=== PATIENT | female | born 1950 | race Caucasian/White ===

== ENCOUNTER 2020-04-03 10:55 | Inpatient (IN) | payer OTHER, BC ==
[2020-04-03] MEDS ORDERED: SODIUM CHLORIDE 2,068 ML IV ONE (11:12)
--- NOTE | 2020-04-03 11:27 | PDOC ---
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 Patient received flu vaccination [address] Craig's office and 2 hours after she started feeling fever and slurred speech. She presented to the ED yesterday with the complaints but was sent home with reassurance as likely vaccination. She has been taking around the clock tylenol. Today she didnt take tylenol and was febrile. After getting up to use the bathroom, she reported BL LE weakness and slumped to the ground without BHT or LOC. At that time she reported word finding difficulty and required assist getting off the ground. She reports her chronic left frontal headache which is unchanged from baseline. She denies neck pain, confusion, meningisumus, chest pain, SOB, abd pain, n/v. PMHx: as noted above ROS: as noted SHx: Denies tobacco use; no alcohol use; no rec drugs Allergies: NKDA ROS: GENERAL/CONSTITUTIONAL: +fever; no chills. + weakness. HEAD, EYES, EARS, NOSE AND THROAT: No change in vision. No ear pain or discharge. No sore throat. CARDIOVASCULAR: No chest pain or shortness of breath RESPIRATORY: No cough, wheezing, or hemoptysis. GASTROINTESTINAL: No nausea, vomiting, diarrhea or constipation. GENITOURINARY: No dysuria, frequency, or change in urination. MUSCULOSKELETAL: No joint or muscle swelling or pain. No neck or back pain. SKIN: No rash NEUROLOGIC: No headache, vertigo, loss of consciousness, or change in stren gth/sensation. ENDOCRINE: No increased thirst. No abnormal weight change HEMATOLOGIC/LYMPHATIC: No anemia, easy bleeding, or history of blood clots. ALLERGIC/IMMUNOLOGIC: No hives or skin allergy. PE: GENERAL: Awake, alert, and fully oriented, no acute distress HEAD: No signs of trauma, normocephalic, atraumatic EYES: EOMI, sclera anicteric, conjunctiva clear ENT: Auricles normal inspection, hearing grossly normal, nares patent, oropharynx clear without exudates. Moist mucosa NECK: Normal ROM, no lymphadenopathy LUNGS: No increased work of breathing, symmetrical chest rise, right basilar rales HEART: Regular rate, regular rhythm, normal S1 and S2, no murmur, peripheral pulses 2+ and equal bilaterally. ABDOMEN: Soft, nondistended, nontender. No guarding, no rebound. No masses. No CVAT MUSCULOSKELETAL: FROM NEUROLOGICAL: Cranial nerves II through XII grossly intact. Normal speech, stable gait, no focal sensorimotor deficits SKIN: Warm, Dry, normal turgor, no rashes or lesions noted Past History - Medical History Allergies/Adverse Reactions: Allergies Allergy/AdvReac Type Severity Reaction Status Date / Time adalimumab [From Humira] Allergy Severe Swelling Verified 04/03/20 10:56 of lips, gums and tongue codeine [Codeine] Allergy Severe SOB Verified 04/03/20 10:56 sulfamethizole Allergy Severe generalized Verified 04/03/20 10:56 rash methotrexate AdvReac Severe Oral Ulcers Verified 04/03/20 10:56 eeg yolk Allergy Severe Lip Uncoded 04/03/20 10:56 swelling Home Medications: Ambulatory Orders Aspirin [Aspirin Ec] 325 mg PO DAILY 08/23/12 Folic Acid 1 mg PO DAILY tablet 08/23/12 Hydroxychloroquine Sulfate [Plaquenil] 200 mg PO BID tablet 08/23/12 Dorzolamide HCl/Timolol Maleat [Cosopt Eye Drops] 1 drop OP EACH EYE 06/29/15 COPD: No HTN: Yes Hypercholesterolemia: Yes Other medical history: LUPUS, RA - Immunization History Immunization Up to Date: Yes - Psycho-Social/Smoking History Smoking History: Never smoked Have you smoked in the past 12 months: No - Substance Abuse Hx (Audit-C & DAST Scrn) How often the patient has a drink containing alcohol: Never Score: In Men: 4 or > Positive; In Women: 3 or > Positive: 0 Screen Result (Pos requires Nsg. Audit-10AR): Negative In the last yr the pt used illegal drug/Rx for NonMed reason: No Score: Yes response is considered Positive: 0 Screen Result (Positive result requires Nsg. 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 T 101.5 HR 90s-100s. Pe with right basilar rales. PE includes CVA, sepsis, vaccine reaction, GBS. Without evidence of meningeal signs, meningitis less likely. -sepsis order set, ivf, tylenol, CTH 04/03/20 18:50 CTH negative consult to Dr Grimaldo detonator maker for Dr Aparicio; recommending MRI brain, esr, crp, lyme, covid, ths will admit for fever in immunocompromised patient admitted under Dr Mark Discharge - Discharge Information Problems reviewed: Yes Clinical Impression/Diagnosis: Fever, Pneumonia, Weakness Condition: Stable - Follow up/Referral - Patient Discharge Instructions - Post Discharge Activity
[2020-04-03 11:55] LABS: BASO % 0.6 % (0-2.0); EOS % 0.1 % (0-4.5); HEMATOCRIT 36.6 % (32.4-45.2); LYMPH % 5.3 % (8-40); MCH 32.3 pg (25.7-33.7); MCHC 32.8 g/dl (32.0-36.0); MEAN CELL VOLUME 98.5 fl (80-96); MEAN PLT VOLUME 8.3 fl (7.5-11.1); PLATELET COUNT 149 K/MM3 (134-434); RBC 3.71 M/mm3 (3.60-5.2); RDW 15.6 % (11.6-15.6); WHITE BLOOD COUNT 9.1 K/mm3 (4.0-10.0)
[2020-04-03 12:01] LABS: INR 1.09 (0.83-1.09); PROTHROMBIN TIME (PATIENT) 12.9 SEC (9.7-13.0)
[2020-04-03 12:04] LABS: ACTIVATED PTT 31.6 SECONDS (25.2-36.5)
[2020-04-03 12:23] LABS: ALBUMIN 3.2 g/dl (3.4-5.0); ALK PHOS 113 U/L (45-117); ANION GAP 6 MMOL/L (8-16); BILIRUBIN,TOTAL 0.4 mg/dL (0.2-1); BLOOD UREA NITROGEN 19.3 mg/dL (7-18); CALCIUM 8.6 mg/dL (8.5-10.1); CHLORIDE 106 mmol/L (98-107); CO2 29 mmol/L (21-32); GLUCOSE,RANDOM 100 mg/dL (74-106); SGOT/AST 55 U/L (15-37); SGPT/ALT 45 U/L (13-61); SODIUM 141 mmol/L (136-145); TOT PROT 6.2 g/dl (6.4-8.2)
[2020-04-03] MEDS ORDERED: ACETAMINOPHEN 500 MG TABLET (FP) PO ONE (12:47)
[2020-04-03] MEDS ORDERED: VANCOMYCIN 1 GM PREMIX - 1 GM/200 ML BAG IVPB ONE (13:12)
[2020-04-03] MEDS ORDERED: PIPERACILLIN/TAZOB 4.5 GM 4.5 GM in DEXTROSE 5%-WATER 100 ML IVPB ONE (13:12)
[2020-04-03] MEDS ORDERED: ACETAMINOPHEN 1000 MG/100 ML VIAL (NON FORMULARY) IVPB ONE (13:25)
[2020-04-03] MEDS ORDERED: ACETAMINOPHEN INJECTION 100 ML IVPB ONE (13:26)
[2020-04-03] MEDS ORDERED: PIPERACILLIN/TAZOB 4.5 GM 4.5 GM/100 ML BAG IVPB ONE (13:51)
--- NOTE | 2020-04-03 14:04 | PDOC ---
Documentation entered by Heather Everett SCRIBE, acting as scribe for Lm Norman MD. Lm Norman MD: This documentation has been prepared by the Karlos tsang Xhesika, SCRIBE, under my direction and personally reviewed by me in its entirety. I confirm that the documentation accurately reflects all work, treatment, procedures, and medical decision making performed by me. Attending Attestation - Resident Resident Name: Jorge Lr - ED Attending Attestation I have performed the following: I have examined & evaluated the patient, The case was reviewed & discussed with the resident, I agree w/resident's findings & plan, Exceptions are as noted - HPI HPI: 04/03/20 12:00 The patient is a 70y/o F with a pmh of lupus, rheumatoid arthritis, hypothyroidism, and scleroderma presents to the ED BIBA with fat igue/weakness/fever. Patient states that she had a flu shot 2 days ago, that evening she felt chills, generally weak and there was an episode of dysarthria, they called EMS the patient was evaluated in the ER and then discharged. She was fine yesterday and then this morning when the patient woke up she was found laying in the bathroom on the bathtub by her and wasnt able to stand up - there was also some brief word finding difficulty. pt does endorse mild L frontal headache, which is chronic for her and typical and unchanged of her headaches. denie sany vision changes, n/v, neck pain, current focal weakness, back pain, cough, sob, diarrhea, dysuria. - Physicial Exam PE: 04/03/20 13:47 GENERAL: The patient is awake, alert, and fully oriented, Nontoxic - in no acute distress. HEAD: Normocephalic, atraumatic. EYES: extraocular movements intact, sclera anicteric, conjunctiva clear. ENT: Normal voice, Moist mucous membranes. NECK: Normal range of motion, supple, Kernig's, negative Brudzinski's LUNGS: Breath sounds equal, clear to auscultation bilaterally. No wheezes, no rhonchi, no rales. HEART: Regular rate and rhythm, normal S1 and S2 without murmur, rub or gallop. ABDOMEN: Soft, nontender, No guarding, no rebound. No CVA tenderness EXTREMITIES: Normal range of motion, no edema. NEUROLOGICAL: No facial assymetry, Normal speech, moving all 4 extremities spontaneously symmetrically, and intact in upper and lower extremities PSYCH: Normal mood, normal affect. SKIN: Hot to touch, Dry, normal turgor, - Medical Decision Making 04/03/20 14:02 no clinical signs of meningitis - ?gbs with temporal relation to flu vaccine? no abnormalneuro findings currently blood work reviewed, no signs of leukocytosis/leukopenia, though neutraphils elevated to [address] head w/o acute findings cxr noted for possible RLL pna - will give abx will dw neurology will continue to monitor Heart Score/ECG Review - ECG Impressions Comment:: 04/03/20 15:12 Twelve-lead EKG was performed and reviewed by me. There is normal sinus rhythm with a normal rate. Rate of 85 The axis is normal. The intervals are normal. There is normal R wave progression There are no ST or T wave abnormalities. Impression: Normal twelve-lead EKG Discharge - Discharge Information Problems reviewed: Yes Clinical Impression/Diagnosis: Weakness Fever Qualifiers: Fever type: due to other condition Qualified Code(s): R50.81 - Fever presenting with conditions classified elsewhere Pneumonia Qualifiers: Pneumonia type: due to unspecified organism Laterality: unspecified laterality Lung location: unspecified part of lung Qualified Code(s): J18.9 - Pneumonia, unspecified organism Condition: Stable Disposition: HOME - Follow up/Referral - Patient Discharge Instructions - Post Discharge Activity
[2020-04-03 14:06] LABS: EPI CELLS 8 /uL (0-25.1); HYALINE CASTS 3 /uL (0-3.1); URINE APPEARANCE CLEAR; URINE BACTERIA 2 /uL (0-1359); URINE BILIRUBIN NEGATIVE (NEGATIVE); URINE COLOR DK YELLOW; URINE GLUCOSE (UA) NEGATIVE (NEGATIVE); URINE KETONE 1+ (NEGATIVE); URINE LEUK ESTERASE NEGATIVE (NEGATIVE); URINE NITRITE NEGATIVE (NEGATIVE); URINE PROTEIN 1+ (NEGATIVE); URINE RBC 20 /uL (0-23.9); URINE WBC 7 /uL (0-25.8)
[2020-04-03] MEDS ORDERED: VANCOMYCIN 1 GRAM (PRE-DOCKED) 1,000 MG/250 ML BAG IVPB ONE (14:34)
[2020-04-03] MEDS ORDERED: GABAPENTIN 300 MG CAPSULE PO ONE (16:09)
[2020-04-03] MEDS ORDERED: ASPIRIN 81 MG CHEWABLE TABLETS PO ONE (16:09)
[2020-04-03] MEDS ORDERED: LEVOTHYROXINE NA 88 MCG TABLET (FP) PO ONE (16:16)
[2020-04-03] MEDS ORDERED: ASPIRIN 81 MG CHEWABLE TABLETS ONE (17:17)
[2020-04-03 18:39] LABS: ERYTHROCYTE SEDIMENTATION RATE 34 mm/hr (0-30)
--- NOTE | 2020-04-03 19:04 | HP ---
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 Patient received flu vaccination [address] Craig's office and 2 hours after she started feeling fever and slurred speech, her husbands noticed that her speech and thoughts are non coherent during these episodes, pt reported that episodes lasted few minutes after which she returned back to normal completely. no dyspnea, no chest pain, no palpitations, no new medications, no sick contacts. ER course was notable for: (1) fever 101 (2) CT/MRI brain remote microvascular changes (3) Recent Travel: no PAST MEDICAL HISTORY: see HPI PAST SURGICAL HISTORY: toneslectomy, thoracotomy for TB cavatation of rt middle lobe, Rt Knee arthroscopy, hysterectomy+ BSO Social History: retired ER nurse Smoking:no Alcohol:no Drugs: no Allergies adalimumab [From Humira] Allergy (Severe, Verified 04/03/20 10:56) Swelling of lips, gums and tongue codeine [Codeine] Allergy (Severe, Verified 04/03/20 10:56) SOB sulfamethizole Allergy (Severe, Verified 04/03/20 10:56) generalized rash methotrexate Adverse Reaction (Severe, Verified 04/03/20 10:56) Oral Ulcers eeg yolk Allergy (Severe, Uncoded 04/03/20 10:56) Lip swelling HOME MEDICATIONS: Home Medications Medication Instructions Recorded Aspirin [Aspirin Ec] 325 mg PO DAILY 08/23/12 Folic Acid 1 mg PO DAILY tablet 08/23/12 Hydroxychloroquine Sulfate 200 mg PO BID tablet 08/23/12 [Plaquenil] Dorzolamide HCl/Timolol Maleat 1 drop OP EACH EYE 06/29/15 [Cosopt Eye Drops] REVIEW OF SYSTEMS CONSTITUTIONAL: Absent: fever, chills, diaphoresis, generalized weakness, malaise, loss of appetite, weight change HEENT: Absent: rhinorrhea, nasal congestion, throat pain, throat swelling, difficulty swallowing, mouth swelling, ear pain, eye pain, visual changes CARDIOVASCULAR: Absent: chest pain, syncope, palpitations, irregular heart rate, lightheadedness, peripheral edema RESPIRATORY: Absent: cough, shortness of breath, dyspnea with exertion, orthopnea, wheezing, stridor, hemoptysis GASTROINTESTINAL: Absent: abdominal pain, abdominal distension, nausea, vomiting, diarrhea, constipation, melena, hematochezia GENITOURINARY: Absent: dysuria, frequency, urgency, hesitancy, hematuria, flank pain, genital pain MUSCULOSKELETAL: Absent: myalgia, arthralgia, joint swelling, back pain, neck pain SKIN: Absent: rash, itching, pallor HEMATOLOGIC/IMMUNOLOGIC: Absent: easy bleeding, easy bruising, lymphadenopathy, frequent infections ENDOCRINE: Absent: unexplained weight gain, unexplained weight loss, heat intolerance, cold intolerance NEUROLOGIC: see HPI PSYCHIATRIC: Absent: anxiety, depression, suicidal or homicidal ideation, hallucinations. PHYSICAL EXAMINATION Vital Signs - 24 hr 04/03/20 04/03/20 04/03/20 10:56 11:05 14:05 Temperature 101.5 F H 99.3 F Pulse Rate 93 H Pulse Rate [ 76 Left Radial] Respiratory 20 16 Rate Blood Pressure 92/61 Blood Pressure 94/55 L [Left Arm] O2 Sat by Pulse 100 95 96 Oximetry (%) 04/03/20 14:08 Temperature Pulse Rate Pulse Rate [ Left Radial] Respiratory Rate Blood Pressure Blood Pressure [Left Arm] O2 Sat by Pulse 95 Oximetry (%) GENERAL: Awake, alert, and fully oriented, in no acute distress. HEAD: Normal with no signs of trauma. EYES: Pupils equal, round and reactive to light, extraocular movements intact, sclera anicteric, conjunctiva clear. No lid lag. EARS, NOSE, THROAT: Ears normal, nares patent, oropharynx clear without exudates. Moist mucous membranes. NECK: Normal range of motion, supple without lymphadenopathy, JVD, or masses. LUNGS: Breath sounds equal, clear to auscultation bilaterally. No wheezes, and no crackles. No accessory muscle use. HEART: Regular rate and rhythm, normal S1 and S2 without murmur, rub or gallop. ABDOMEN: Soft, nontender, not distended, normoactive bowel sounds, no guarding, no rebound, no masses. No hepatomegaly or splenomegaly. MUSCULOSKELETAL: Normal range of motion at all joints. No bony deformities or tenderness. No CVA tenderness. UPPER EXTREMITIES: 2+ pulses, warm, well-perfused. No cyanosis. No clubbing. No peripheral edema. LOWER EXTREMITIES: 2+ pulses, warm, well-perfused. No calf tenderness. No peripheral edema. NEUROLOGICAL: Cranial nerves II-XII intact. Normal speech. Normal gait. PSYCHIATRIC: Cooperative. Good eye contact. Appropriate mood and affect. SKIN: Warm, dry, normal turgor, no rashes or lesions noted, normal capillary refill. Laboratory Results - last 24 hr 04/03/20 04/03/20 04/03/20 11:19 11:19 11:23 WBC 9.1 RBC 3.71 Hgb 12.0 Hct 36.6 MCV 98.5 H MCH 32.3 MCHC 32.8 RDW 15.6 Plt Count 149 D MPV 8.3 Absolute Neuts (auto) 8.2 H Neutrophils % 90.0 H D Lymphocytes % 5.3 L D Monocytes % 4.0 Eosinophils % 0.1 D Basophils % 0.6 Nucleated RBC % 0 ESR 34 H PT with INR INR PTT (Actin FS) Sodium 141 Potassium 4.0 Chloride 106 Carbon Dioxide 29 Anion Gap 6 L BUN 19.3 H Creatinine 1.0 Est GFR (CKD-EPI)AfAm 67.04 Est GFR (CKD-EPI)NonAf 57.84 Random Glucose 100 Lactic Acid 1.2 Calcium 8.6 Total Bilirubin 0.4 AST 55 H ALT 45 Alkaline Phosphatase 113 Troponin I < 0.02 C-Reactive Protein 3.5 H Total Protein 6.2 L Albumin 3.2 L TSH 0.80 Urine Color Urine Appearance Urine pH Ur Specific [place] Urine Protein Urine Glucose (UA) Urine Ketones Urine Blood Urine Nitrite Urine Bilirubin Urine Urobilinogen Ur Leukocyte Esterase Urine WBC (Auto) Urine RBC (Auto) Urine Casts (Auto) U Epithel Cells (Auto) Urine Bacteria (Auto) 04/03/20 04/03/20 04/03/20 11:25 13:30 17:30 WBC RBC Hgb Hct MCV MCH MCHC RDW Plt Count MPV Absolute Neuts (auto) Neutrophils % Lymphocytes % Monocytes % Eosinophils % Basophils % Nucleated RBC % ESR PT with INR 12.90 INR 1.09 PTT (Actin FS) 31.6 Sodium Potassium Chloride Carbon Dioxide Anion Gap BUN Creatinine Est GFR (CKD-EPI)AfAm Est GFR (CKD-EPI)NonAf Random Glucose Lactic Acid 0.6 Calcium Total Bilirubin AST ALT Alkaline Phosphatase Troponin I C-Reactive Protein Total Protein Albumin TSH Urine Color Dk yellow Urine Appearance Clear Urine pH 5.0 Ur Specific [place] 1.028 Urine Protein 1+ H Urine Glucose (UA) Negative Urine Ketones 1+ H Urine Blood Negative Urine Nitrite Negative Urine Bilirubin Negative Urine Urobilinogen 1.0 Ur Leukocyte Esterase Negative Urine WBC (Auto) 7 Urine RBC (Auto) 20 Urine Casts (Auto) 3 U Epithel Cells (Auto) 8 Urine Bacteria (Auto) 2 ASSESSMENT/PLAN: 70 y/o F with hx of HTN, HLD, SLE, scleroderma, RA, glaucoma, 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 EEG? CT/MRI reviewed tele monitor, seizure, fall precautions resuming home meds, but will hold BB due to low BP and benzo Neurology consult ID consult Rheumatology consult HTN HLD SLE Scleroderma RA glaucoma DVT prophylaxis Family Medical History Family History: As Documented Other Family History: Aunt has SLE Visit type - Medication Review Med list reviewed for High Risk Meds patients 65 and older: Yes - Emergency Visit Emergency Visit: Yes ED Registration Date: 04/03/20 Care time: The patient presented to the Emergency Department on the above date and was hospitalized for further evaluation of their emergent condition. - New Patient This patient is new to me today: Yes Date on this admission: 04/04/20 - Critical Care Critical Care patient: No
[2020-04-03] MEDS ORDERED: GABAPENTIN 250 MG/5 ML ORAL SOLUTION, 470 ML BOTTLE PO SCH (22:00)
[2020-04-03] MEDS ORDERED: HYDROXYCHLOROQUINE SO4 200 MG TABLET (FP) PO SCH (22:00)
[2020-04-03] MEDS ORDERED: GABAPENTIN 300 MG CAPSULE PO SCH ×3 (22:00)
[2020-04-03] MEDS ORDERED: PT OWN MED DRAWER 7, Y5N ONE (22:24)
[2020-04-03] MEDS: HEPARIN NA (PORCINE) 5,000 UNITS/ML 1ML VIAL SQ SCH (22:44)
[2020-04-03] MEDS: TIMOLOL 0.5% OPHTHALMIC SOL 5 ML BOTTLE OU SCH (22:45)
[2020-04-03] MEDS: ATORVASTATIN CA 20 MG TABLET (FP) PO SCH (22:45)
[2020-04-03] MEDS: LATANOPROST 0.005% OPHTH SOLN 2.5ML BOTTLE OU SCH (22:45)
[2020-04-03] MEDS: DORZOLAMIDE 2% HCL OPHTHALMIC SOLUTION 10 ML BOTTLE OU SCH (22:46)
[2020-04-03] MEDS: TEMAZEPAM 15 MG CAPSULE PO SCH (23:00)
[2020-04-03 23:42] LABS: URINE APPEARANCE CLEAR; URINE BILIRUBIN NEGATIVE (NEGATIVE); URINE COLOR YELLOW; URINE GLUCOSE (UA) NEGATIVE (NEGATIVE); URINE KETONE NEGATIVE (NEGATIVE); URINE LEUK ESTERASE NEGATIVE (NEGATIVE); URINE NITRITE NEGATIVE (NEGATIVE); URINE PROTEIN TRACE (NEGATIVE)
[2020-04-03] MEDS: HYDROXYCHLOROQUINE 200 MG/8 ML ORAL SUSPENSION PO SCH (23:51)
[2020-04-04 00:44] VITALS: BMI 25.0
[2020-04-04] MEDS ORDERED: GABAPENTIN 250 MG/5 ML ORAL SOLUTION, 470 ML BOTTLE PO SCH ×3 (06:00→22:00)
[2020-04-04] MEDS: LEVOTHYROXINE NA 88 MCG TABLET (FP) PO SCH (06:12)
[2020-04-04] MEDS: DORZOLAMIDE 2% HCL OPHTHALMIC SOLUTION 10 ML BOTTLE OU SCH ×3 (06:23→22:03)
[2020-04-04] MEDS: GABAPENTIN 250 MG/5 ML ORAL SOLUTION, 470 ML BOTTLE PO SCH ×3 (06:24→21:59)
[2020-04-04] MEDS: HEPARIN NA (PORCINE) 5,000 UNITS/ML 1ML VIAL SQ SCH ×3 (06:24→22:00)
[2020-04-04 07:56] LABS: BASO % 0.5 % (0-2.0); EOS % 1.7 % (0-4.5); HEMATOCRIT 37.2 % (32.4-45.2); HEMOGLOBIN 12.1 GM/dL (10.7-15.3); LYMPH % 19.8 % (8-40); MCH 31.9 pg (25.7-33.7); MCHC 32.6 g/dl (32.0-36.0); MEAN CELL VOLUME 97.9 fl (80-96); MEAN PLT VOLUME 8.5 fl (7.5-11.1); MONO % 6.8 % (3.8-10.2); NEUT % 71.2 % (42.8-82.8); PLATELET COUNT 184 K/MM3 (134-434); RBC 3.79 M/mm3 (3.60-5.2); RDW 15.4 % (11.6-15.6); WHITE BLOOD COUNT 5.7 K/mm3 (4.0-10.0)
[2020-04-04 07:58] LABS: INR 0.99 (0.83-1.09); PROTHROMBIN TIME (PATIENT) 11.7 SEC (9.7-13.0)
--- NOTE | 2020-04-04 08:04 | PN ---
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 presenting to the ED with episodes of fever and BL LE weakness and confusion - Current Medication List Current Medications: Active Medications Atorvastatin Calcium (Lipitor -) 20 mg PO HS [facility] Last Admin: 04/03/20 22:45 Dose: 20 mg Documented by: Cholecalciferol (Vitamin D3 -) 1,000 unit PO DAILY [facility] Dorzolamide HCl (Trusopt 2%) 1 drop OU TID [facility] Last Admin: 04/04/20 06:23 Dose: Not Given Documented by: Famotidine (Pepcid -) 20 mg PO DAILY [facility] Folic Acid (Folic Acid -) 1 mg PO DAILY [facility] Gabapentin (Neurontin Oral Liquid -) 600 mg PO DAILY@1200 [facility] Gabapentin (Neurontin Oral Liquid -) 1,200 mg PO BID@0600,2200 [facility] Last Admin: 04/04/20 06:24 Dose: 1,200 mg Documented by: Heparin Sodium (Porcine) (Heparin -) 5,000 unit SQ TID [facility] Last Admin: 04/04/20 06:24 Dose: 5,000 unit Documented by: Hydroxychloroquine Sulfate (Plaquenil Suspension) 200 mg PO BID [facility] Stop: 04/07/20 10:01 Last Admin: 04/03/20 23:51 Dose: 200 mg Documented by: Latanoprost (Xalatan 0.005% Eye Drops -) 1 drop OU [facility] Last Admin: 04/03/20 22:45 Dose: 1 drop Documented by: Levothyroxine Sodium (Synthroid -) 88 mcg PO DAILY@0700 [facility] Last Admin: 04/04/20 06:12 Dose: 88 mcg Documented by: Multivitamins (Total B With C -) 1 each PO DAILY [facility] Multivitamins/Minerals/Vitamin C (Tab-A-Vit -) 1 tab PO DAILY [facility] Temazepam (Restoril -) 30 mg PO [facility] Last Admin: 04/03/20 23:00 Dose: Not Given Documented by: Timolol Maleate (Timoptic 0.5%) 1 drop OU BID [facility] Last Admin: 04/03/20 22:45 Dose: 1 drop Documented by: - Objective Vital Signs: Vital Signs Temperature 98.0 F 04/04/20 06:00 Pulse Rate 64 04/04/20 06:00 Respiratory Rate 18 04/04/20 06:00 Blood Pressure 100/69 04/04/20 06:00 O2 Sat by Pulse Oximetry (%) 100 04/04/20 06:00 Labs: INR, PTT INR 0.99 (0.83-1.09) 04/04/20 07:10 - ....Imaging Cat Scan: Report Reviewed (CT/MRI brain remote microvascular changes) Problem List - Problems (1) Suspected COVID-19 virus infection Code(s): Z20.828 - CONTACT W AND EXPOSURE TO OTH VIRAL COMMUNICABLE DISEASES (2) HTN (hypertension) Code(s): I10 - ESSENTIAL (PRIMARY) HYPERTENSION (3) HLD (hyperlipidemia) Code(s): E78.5 - HYPERLIPIDEMIA, UNSPECIFIED (4) SLE (systemic lupus erythematosus) Code(s): M32.9 - SYSTEMIC LUPUS ERYTHEMATOSUS, UNSPECIFIED (5) Scleroderma Code(s): M34.9 - SYSTEMIC SCLEROSIS, UNSPECIFIED (6) Rheumatoid arthritis Code(s): M06.9 - RHEUMATOID ARTHRITIS, UNSPECIFIED (7) Glaucoma Code(s): H40.9 - UNSPECIFIED GLAUCOMA (8) Pulmonary tuberculosis with cavitation Code(s): A15.0 - TUBERCULOSIS OF LUNG (10) Fever Code(s): R50.9 - FEVER, UNSPECIFIED (11) Acute encephalopathy Code(s): G93.40 - ENCEPHALOPATHY, UNSPECIFIED (12) Prophylactic measure Code(s): Z29.9 - ENCOUNTER FOR PROPHYLACTIC MEASURES, UNSPECIFIED
[2020-04-04 08:31] LABS: ALBUMIN 3.4 g/dl (3.4-5.0); BLOOD UREA NITROGEN 12.3 mg/dL (7-18); CALCIUM 8.7 mg/dL (8.5-10.1); MAGNESIUM 2.2 mg/dL (1.8-2.4); POTASSIUM 4.2 mmol/L (3.5-5.1)
[2020-04-04 08:44] LABS: BILIRUBIN,TOTAL 0.6 mg/dL (0.2-1); CREATININE 0.7 mg/dL (0.55-1.3); PHOSPHOROUS 2.4 mg/dL (2.5-4.9); TOT PROT 6.7 g/dl (6.4-8.2)
[2020-04-04] MEDS ORDERED: PT OWN MED DRAWER 7, Y5N ONE ×2 (09:49→21:47)
[2020-04-04] MEDS: CHOLECALCIFEROL (VIT D3) 1,000 UNIT (25 MCG) TABLET PO SCH (09:53)
[2020-04-04] MEDS: MULTIVITAMINS (DAILY MVI) TABLET (FP) PO SCH (09:53)
[2020-04-04] MEDS: FOLIC ACID 1 MG TABLET (FP) PO SCH (09:53)
[2020-04-04] MEDS: FAMOTIDINE 20 MG TABLET PO SCH (09:53)
[2020-04-04] MEDS: VITAMIN B COMPLEX W/C COMBO TABLET (FP) PO SCH (09:53)
[2020-04-04] MEDS: TIMOLOL 0.5% OPHTHALMIC SOL 5 ML BOTTLE OU SCH ×2 (09:53→22:02)
[2020-04-04] MEDS ORDERED: VITAMIN B COMP W-C 1 EA TABLET (NEPHRO-VITE) PO SCH (10:00)
[2020-04-04] MEDS: HYDROXYCHLOROQUINE 200 MG/8 ML ORAL SUSPENSION PO SCH ×2 (10:56→22:00)
[2020-04-04] MEDS ORDERED: GABAPENTIN 300 MG CAPSULE PO SCH (12:00)
--- NOTE | 2020-04-04 12:05 | EKG ---
Test Reason : Blood Pressure : / mmHG Vent. Rate : 085 BPM Atrial Rate : 085 BPM P-R Int : 202 ms QRS Dur : 104 ms QT Int : 400 ms P-R-T Axes : 032 004 026 degrees QTc Int : 476 ms NORMAL SINUS RHYTHM NONSPECIFIC INTRAVENTRICULAR CONDUCTION DEFECT NO PREVIOUS ECGS AVAILABLE Confirmed by RAYNA WARNER MD ([id number]) on 04/04/2020 12:04:47 PM Referred By: Confirmed By:RAYNA WARNER MD
--- NOTE | 2020-04-04 12:39 | CON.NEURO ---
Consult - History of Present Illness History of Present Illness: 70 y/o F with hx of HTN, HLD, SLE, scleroderma, RA ( sees Dr Sara Rivero/RHEUM) , TB cavitation s/p thoracotomy ( 10/23) and nodule resection presenting to the ED with episodes of fever and BiLat LE weakness and confusion on 04/03/20. Patient received flu vaccination [address] Craig's office and 2 hours after she started feeling fever and slurred speech, her husbands noticed that her speech and thoughts are non coherent during these episodes, pt reported that episodes lasted few minutes after which she returned back to normal completely. no dyspnea, no chest pain, no palpitations, no new medications, no sick contacts. Called for confusion and leg weakness. on temezepam and gabapentin-- years on this dose. she is at baseline now , no weakness and mentating well. no RAMON or backpain. MRI BRAIN reviewed mild white matter changes, no acute pathology COVID (-), ESR 28. - Smoking History Smoking history: Never smoked Have you smoked in the past 12 months: No Home Medications - Allergies Allergies/Adverse Reactions: Allergies Allergy/AdvReac Type Severity Reaction Status Date / Time adalimumab [From Humira] Allergy Severe Swelling Verified 04/03/20 10:56 of lips, gums and tongue codeine [Codeine] Allergy Severe SOB Verified 04/03/20 10:56 sulfamethizole Allergy Severe generalized Verified 04/03/20 10:56 rash eeg yolk Allergy Severe Lip Uncoded 04/03/20 10:56 swelling - Home Medications Home Medications: Ambulatory Orders Aspirin [Aspirin Ec] 325 mg PO DAILY 08/23/12 Folic Acid 1 mg PO DAILY tablet 08/23/12 Hydroxychloroquine Sulfate [Plaquenil] 200 mg PO BID tablet 08/23/12 Dorzolamide HCl/Timolol Maleat [Cosopt Eye Drops] 1 drop OP EACH EYE 06/29/15 Latanoprost 0.005% Eye Drops [Xalatan 0.005% Eye Drops -] 1 drop OU DAILY 04/03/20 Temazepam [Restoril] 30 mg PO 04/03/20 Tramadol HCl [Ultram] 50 mg PO DAILY PRN MDD 50 mg 04/03/20 Family Medical History Other Family History: Aunt has SLE Physical Exam-Neuro Vital Signs: Vital Signs Temperature 97.2 F L 04/04/20 09:42 Pulse Rate 74 04/04/20 09:42 Respiratory Rate 18 04/04/20 09:42 Blood Pressure 113/72 04/04/20 09:42 O2 Sat by Pulse Oximetry (%) 98 04/04/20 09:42 Labs: CBC, BMP 04/04/20 07:10 04/04/20 07:10 INR, PTT INR 0.99 (0.83-1.09) 04/04/20 07:10 - Neuro Exam Level Of Consciousness: Yes: Alert, Oriented to Person (EOMI, no facial, motor 5/5, no drift, reflexes 1+ patellar trace in LE. 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 Patient received flu vaccination [address] Craig's office and 2 hours after she started feeling fever and slurred speech, her husbands noticed that her speech and thoughts are non coherent during these episodes, pt reported that episodes lasted few minutes after which she returned back to normal completely. no dyspnea, no chest pain, no palpitations, no new medications, no sick contacts. Called for confusion and leg weakness. on temezepam and gabapentin . MRI BRAIN reviewed mild white matter changes, no acute pathology COVID (-), ESR 28. AP : transient encephalopathy post vaccination , less likely TIA given that Sx last only few minutes, nonlocalizing SX . ? ABNl rxn to vaccine. no signs of meningitis, GBS, vasculitis--she does not require an LP. MRI BRAin (-) Reasonable for her get Doppler/ ECHO to ensure no embolic phenomena at play--can be done as oupt. neuro stable and can FU her as outpt [phone] thanks, DR MOREJON
--- NOTE | 2020-04-04 12:46 | PN ---
Physical Exam: SUBJECTIVE: Patient seen and examined OBJECTIVE: Vital Signs Period Temp Pulse Resp BP Sys/Escobar Pulse Ox Last 24 Hr 97.2 F-99.3 F 64-85 16-18 94-113/55-72 95-100 GENERAL: Awake, alert, and fully oriented, in no acute distress. HEAD: Normal with no signs of trauma. EYES: Pupils equal, round and reactive to light, extraocular movements intact, sclera anicteric, conjunctiva clear. No lid lag. EARS, NOSE, THROAT: Ears normal, nares patent, oropharynx clear without exudates. Moist mucous membranes. NECK: Normal range of motion, supple without lymphadenopathy, JVD, or masses. LUNGS: Breath sounds equal, clear to auscultation bilaterally. No wheezes, and no crackles. No accessory muscle use. HEART: Regular rate and rhythm, normal S1 and S2 without murmur, rub or gallop. ABDOMEN: Soft, nontender, not distended, normoactive bowel sounds, no guarding, no rebound, no masses. No hepatomegaly or splenomegaly. LOWER EXTREMITIES: 2+ pulses, warm, well-perfused. No calf tenderness. No peripheral edema. NEUROLOGICAL: Cranial nerves II-XII intact. Normal speech. Normal gait. Laboratory Results - last 24 hr 04/03/20 04/03/20 04/03/20 11:19 11:23 13:30 WBC 9.1 RBC 3.71 Hgb 12.0 Hct 36.6 MCV 98.5 H MCH 32.3 MCHC 32.8 RDW 15.6 Plt Count 149 D MPV 8.3 Absolute Neuts (auto) 8.2 H Neutrophils % 90.0 H D Lymphocytes % 5.3 L D Monocytes % 4.0 Eosinophils % 0.1 D Basophils % 0.6 Nucleated RBC % 0 ESR 34 H PT with INR INR Sodium 141 Potassium 4.0 Chloride 106 Carbon Dioxide 29 Anion Gap 6 L BUN 19.3 H Creatinine 1.0 Est GFR (CKD-EPI)AfAm 67.04 Est GFR (CKD-EPI)NonAf 57.84 POC Glucometer Random Glucose 100 Lactic Acid Calcium 8.6 Phosphorus Magnesium Total Bilirubin 0.4 AST 55 H ALT 45 Alkaline Phosphatase 113 Troponin I < 0.02 C-Reactive Protein 3.5 H Total Protein 6.2 L Albumin 3.2 L TSH 0.80 Urine Color Dk yellow Urine Appearance Clear Urine pH 5.0 Ur Specific [place] 1.028 Urine Protein 1+ H Urine Glucose (UA) Negative Urine Ketones 1+ H Urine Blood Negative Urine Nitrite Negative Urine Bilirubin Negative Urine Urobilinogen 1.0 Ur Leukocyte Esterase Negative Urine WBC (Auto) 7 Urine RBC (Auto) 20 Urine Casts (Auto) 3 U Epithel Cells (Auto) 8 Urine Bacteria (Auto) 2 COVID-19 (RICKI) 04/03/20 04/03/20 04/03/20 17:30 18:10 22:50 WBC RBC Hgb Hct MCV MCH MCHC RDW Plt Count MPV Absolute Neuts (auto) Neutrophils % Lymphocytes % Monocytes % Eosinophils % Basophils % Nucleated RBC % ESR PT with INR INR Sodium Potassium Chloride Carbon Dioxide Anion Gap BUN Creatinine Est GFR (CKD-EPI)AfAm Est GFR (CKD-EPI)NonAf POC Glucometer Random Glucose Lactic Acid 0.6 Calcium Phosphorus Magnesium Total Bilirubin AST ALT Alkaline Phosphatase Troponin I C-Reactive Protein Total Protein Albumin TSH Urine Color Yellow Urine Appearance Clear Urine pH 5.0 Ur Specific [place] 1.026 Urine Protein Trace Urine Glucose (UA) Negative Urine Ketones Negative Urine Blood Negative Urine Nitrite Negative Urine Bilirubin Negative Urine Urobilinogen 1.0 Ur Leukocyte Esterase Negative Urine WBC (Auto) Urine RBC (Auto) Urine Casts (Auto) U Epithel Cells (Auto) Urine Bacteria (Auto) COVID-19 (RICKI) Not detected 04/04/20 04/04/20 04/04/20 00:16 07:10 07:10 WBC 5.7 RBC 3.79 Hgb 12.1 Hct 37.2 MCV 97.9 H MCH 31.9 MCHC 32.6 RDW 15.4 Plt Count 184 D MPV 8.5 Absolute Neuts (auto) 4.1 Neutrophils % 71.2 D Lymphocytes % 19.8 D Monocytes % 6.8 Eosinophils % 1.7 D Basophils % 0.5 Nucleated RBC % 0 ESR PT with INR 11.70 INR 0.99 Sodium Potassium Chloride Carbon Dioxide Anion Gap BUN Creatinine Est GFR (CKD-EPI)AfAm Est GFR (CKD-EPI)NonAf POC Glucometer 97 Random Glucose Lactic Acid Calcium Phosphorus Magnesium Total Bilirubin AST ALT Alkaline Phosphatase Troponin I C-Reactive Protein Total Protein Albumin TSH Urine Color Urine Appearance Urine pH Ur Specific [place] Urine Protein Urine Glucose (UA) Urine Ketones Urine Blood Urine Nitrite Urine Bilirubin Urine Urobilinogen Ur Leukocyte Esterase Urine WBC (Auto) Urine RBC (Auto) Urine Casts (Auto) U Epithel Cells (Auto) Urine Bacteria (Auto) COVID-19 (RICKI) 04/04/20 04/04/20 04/04/20 07:10 07:10 07:10 WBC RBC Hgb Hct MCV MCH MCHC RDW Plt Count MPV Absolute Neuts (auto) Neutrophils % Lymphocytes % Monocytes % Eosinophils % Basophils % Nucleated RBC % ESR 28 PT with INR INR Sodium 142 Potassium 4.2 Chloride 108 H Carbon Dioxide 29 Anion Gap 5 L BUN 12.3 Creatinine 0.7 Est GFR (CKD-EPI)AfAm 103.18 Est GFR (CKD-EPI)NonAf 89.03 POC Glucometer Random Glucose 93 Lactic Acid Calcium 8.7 Phosphorus 2.4 L Magnesium 2.2 Total Bilirubin 0.6 AST 39 H ALT 41 Alkaline Phosphatase 114 Troponin I C-Reactive Protein 4.3 H Total Protein 6.7 Albumin 3.4 TSH 2.03 Urine Color Urine Appearance Urine pH Ur Specific [place] Urine Protein Urine Glucose (UA) Urine Ketones Urine Blood Urine Nitrite Urine Bilirubin Urine Urobilinogen Ur Leukocyte Esterase Urine WBC (Auto) Urine RBC (Auto) Urine Casts (Auto) U Epithel Cells (Auto) Urine Bacteria (Auto) COVID-19 (RICKI) Active Medications Generic Name Dose Route Start Last Admin Trade Name Francie PRN Reason Stop Dose Admin Atorvastatin Calcium 20 mg 04/03/20 22:00 04/03/20 22:45 Lipitor - PO 20 mg HS FRANK Administration Cholecalciferol 1,000 unit 04/04/20 10:00 04/04/20 09:53 Vitamin D3 - PO 1,000 unit DAILY FRANK Administration Dorzolamide HCl 1 drop 04/03/20 22:00 04/04/20 06:23 Trusopt 2% OU Not Given TID FRANK Famotidine 20 mg 04/04/20 10:00 04/04/20 09:53 Pepcid - PO 20 mg DAILY FRANK Administration Folic Acid 1 mg 04/04/20 10:00 04/04/20 09:53 Folic Acid - PO 1 mg DAILY FRANK Administration Gabapentin 600 mg 04/04/20 12:00 04/04/20 11:45 Neurontin Oral Liquid - PO 600 mg DAILY@1200 FRANK Administration Gabapentin 1,200 mg 04/04/20 06:00 04/04/20 06:24 Neurontin Oral Liquid - PO 1,200 mg BID@0600,2200 FRANK Administration Heparin Sodium (Porcine) 5,000 unit 04/03/20 22:00 04/04/20 06:24 Heparin - SQ 5,000 unit TID FRANK Administration Hydroxychloroquine Sulfate 200 mg 04/03/20 22:00 04/04/20 10:56 Plaquenil Suspension PO 04/07/20 10:01 200 mg BID FRANK Administration Latanoprost 1 drop 04/03/20 22:00 04/03/20 22:45 Xalatan 0.005% Eye Drops - OU 1 drop HS FRANK Administration Levothyroxine Sodium 88 mcg 04/04/20 07:00 04/04/20 06:12 Synthroid - PO 88 mcg DAILY@0700 FRANK Administration Multivitamins 1 each 04/04/20 10:00 04/04/20 09:53 Total B With C - PO 1 each DAILY FRANK Administration Multivitamins/Minerals/Vitamin C 1 tab 04/04/20 10:00 04/04/20 09:53 Tab-A-Vit - PO 1 tab DAILY FRANK Administration Temazepam 30 mg 04/03/20 22:00 04/03/20 23:00 Restoril - PO Not Given HS FRANK Timolol Maleate 1 drop 04/03/20 22:00 04/04/20 09:53 Timoptic 0.5% OU 1 drop BID FRANK Administration ASSESSMENT/PLAN: 70 y/o F with hx of HTN, HLD, SLE, scleroderma, RA, glaucoma, 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 EEG? CT/MRI reviewed tele monitor, seizure, fall precautions resuming home meds, but will hold BB due to low BP and benzo Neurology consult ID consult Rheumatology consult HTN HLD SLE Scleroderma RA glaucoma DVT prophylaxis Visit type - Emergency Visit Emergency Visit: Yes ED Registration Date: 04/03/20 Care time: The patient presented to the Emergency Department on the above date and was hospitalized for further evaluation of their emergent condition. - New Patient This patient is new to me today: No - Critical Care Critical Care patient: No - Discharge Referral Referred to [facility] No - Medication Review Med list reviewed for High Risk Meds patients 65 and older: Yes (reviewed)
--- NOTE | 2020-04-04 15:19 | CON.ID ---
Consult - History of Present Illness History of Present Illness: 70 y.o. female with PMH of SLE, scleroderma, RA, HTN, HLD, Ovarian Cyst s/p SLAVA/BSO on 02/2020, hx of pulmonary cavitary lesion (denies dx of TB and states it was due to Methotrexate ?, s/p VATS and nodule resection), HTN, HLD presents with c/o intermittent LE weakness/difficulty ambulating, speech difficulty, confusion/incoherence, and feeling hot/clammy since receiving inactivated flu vaccine at [facility] 3 days ago. She states that she started feeling leg weakness with inability to walk to the bathroom 2 hours after receiving the vaccine. Episode lasted about an hour and she came to the ER by which time she was back to her normal health and was discharged. After going home she began having similar symptoms with difficulty speaking, confusion, and return of b/l LE weakness with legs giving out in the bathroom without head trauma or LOC. This lasted about 1 hour before returning to normal again in the ER. at bedside provided description of abnormal mental status during these periods. Pt states she has not had any reactions to inactivated flu vaccine in the past and receives them yearly. In the ER she was initially noted to have a fever (101.5F), with mild tachycardia, some difficulty forming words but resolved. Since then pt has been lucid/alert, afebrile, without LE weakness and able to ambulate and speak without difficulty. Denies feeling ill prior to initial symptoms. She has been afebrile, without complaints. No SOB/cough, abd pain/n/v, +softer BMs x 2, dysuria, h/a or neck stiffness. She feels well. - History Source History Provided By: Patient, Significant Other () Limitations to Obtaining History: No Limitations - Past Medical History Cardio/Vascular: Yes: HTN, Hyperlipdemia Pulmonary: Yes: Other (pulmonary nodule) Reproductive: Yes: Other (ovarian cyst s/p SLAVA/BSO) Rheumatology: Yes: Lupus, Rheumatoid Arthritis, Other (Scleroderma) - Past Surgical History Past Surgical History: Yes: Hysterectomy, Oopherectomy - Smoking History Smoking history: Never smoked Have you smoked in the past 12 months: No - Social History Usual Living Arrangement: With Spouse Occupation: Retired nurse History of Recent Travel: No Home Medications - Allergies Allergies/Adverse Reactions: Allergies Allergy/AdvReac Type Severity Reaction Status Date / Time adalimumab [From Humira] Allergy Severe Swelling Verified 04/03/20 10:56 of lips, gums and tongue codeine [Codeine] Allergy Severe SOB Verified 04/03/20 10:56 sulfamethizole Allergy Severe generalized Verified 04/03/20 10:56 rash eeg yolk Allergy Severe Lip Uncoded 04/03/20 10:56 swelling - Home Medications Home Medications: Ambulatory Orders Aspirin [Aspirin Ec] 325 mg PO DAILY 08/23/12 Folic Acid 1 mg PO DAILY tablet 08/23/12 Hydroxychloroquine Sulfate [Plaquenil] 200 mg PO BID tablet 08/23/12 Dorzolamide HCl/Timolol Maleat [Cosopt Eye Drops] 1 drop OP EACH EYE 06/29/15 Latanoprost 0.005% Eye Drops [Xalatan 0.005% Eye Drops -] 1 drop OU DAILY 04/03/20 Temazepam [Restoril] 30 mg PO 04/03/20 Tramadol HCl [Ultram] 50 mg PO DAILY PRN MDD 50 mg 04/03/20 Methotrexate [Mexate -] 12.5 mg PO Q7D 04/04/20 Family Medical History Other Family History: Aunt has SLE Review of Systems - Review of Systems Constitutional: reports: No Symptoms. denies: Chills, Diaphoresis, Fever, Lethargy, Loss of Appetite, Malaise, Night Sweats, Unintentional Wgt. Loss, Weakness, Other Eyes: reports: No Symptoms. denies: Blind Spots, Blurred Vision, Double Vision, Eye Pain, Floaters, Photophobia, Recent Change in Vision, Other HENT: reports: No Symptoms. denies: Difficult Swallowing, Ear Discharge, Ear Pain, Epistaxis, Gingival Bleeding, Hearing Loss, Mouth Swelling, Nasal Congestion, Ocular Prosthesis, Throat Pain, Toothache, Ringing in Ears, Other Neck: reports: No Symptoms. denies: Decreased ROM, Lumps, Pain on Movement, Stiffness, Swollen Glands, Tenderness, Other Cardiovascular: reports: No Symptoms. denies: Chest Pain, Edema, Palpitations, Shortness of Breath, Other Respiratory: reports: No Symptoms. denies: Cough, Exercise Intolerance, Hemoptysis, Orthopnea, PND, Snoring, SOB, SOB on Exertion, Wheezing, Other Gastrointestinal: reports: No Symptoms. denies: Abdominal Pain, Bloating, Constipation, Diarrhea, Dysphagia, Indigestion, Melena, Nausea, Rectal Bleeding, Vomiting, Vomiting Blood, Other Genitourinary: reports: No Symptoms. denies: Burning, Discharge, Dysuria, Flank Pain, Frequency, Hematuria, Incontinence, Lesions, Menses, Pain, Testicular Mass, Testicular Pain, Testicular Swelling, Urgency, Vaginal Bleeding, Other Breasts: reports: No Symptoms Reported. denies: See HPI, Breast Implants, Discharge from Nipple, Lumps, Pain, Skin Changes, Other Musculoskeletal: reports: No Symptoms. denies: Back Pain, Crepitus, Decreased ROM, Extremity Pain, Joint Pain, Joint Swelling, Muscle Pain, Muscle Cramps, Muscle Weakness, Other Integumentary: reports: No Symptoms. denies: Blister, Bruising, Change in Color, Eczema, Erythema, Incision, Lesions, Lump, Pallor, Pruritis, Rash, Wound, Other Neurological: reports: No Symptoms Endocrine: reports: No Symptoms Hematology/Lymphatic: reports: No Symptoms Psychiatric: reports: No Symptoms Physical Exam Vital Signs: Vital Signs Temperature 97.2 F L 04/04/20 09:42 Pulse Rate 74 04/04/20 09:42 Respiratory Rate 18 04/04/20 09:42 Blood Pressure 113/72 04/04/20 09:42 O2 Sat by Pulse Oximetry (%) 98 04/04/20 09:42 Constitutional: Yes: Well Nourished, No Distress, Calm Eyes: Yes: WNL, Conjunctiva Clear, EOM Intact HENT: Yes: WNL, Atraumatic, Normocephalic Neck: Yes: Supple, Trachea Midline Cardiovascular: Yes: Regular Rate and Rhythm Respiratory: Yes: CTA Bilaterally Gastrointestinal: Yes: Normal Bowel Sounds, Soft Renal/: Yes: WNL Musculoskeletal: Yes: WNL Extremities: Yes: WNL Edema: No Peripheral Pulses WNL: Yes Integumentary: Yes: WNL Neurological: Yes: Alert, Oriented ...Motor Strength: WNL Psychiatric: Yes: Alert, Oriented Labs: CBC, BMP 04/04/20 07:10 04/04/20 07:10 Microbiology 04/03/20 11:25 Blood - Peripheral Venous Blood Culture - Preliminary NO GROWTH OBTAINED AFTER 24 HOURS, INCUBATION TO CONTINUE FOR 4 DAYS. 04/03/20 11:25 Blood - Peripheral Venous Blood Culture - Preliminary NO GROWTH OBTAINED AFTER 24 HOURS, INCUBATION TO CONTINUE FOR 4 DAYS. 04/03/20 13:30 Urine - Urine Clean Catch Urine Culture - Final NO GROWTH OBTAINED Laboratory Tests 04/03/20 04/03/20 04/03/20 11:19 11:19 11:23 WBC 9.1 RBC 3.71 Hgb 12.0 Hct 36.6 MCV 98.5 H MCH 32.3 MCHC 32.8 RDW 15.6 Plt Count 149 D MPV 8.3 Absolute Neuts (auto) 8.2 H Neutrophils % 90.0 H D Lymphocytes % 5.3 L D Monocytes % 4.0 Eosinophils % 0.1 D Basophils % 0.6 Nucleated RBC % 0 ESR 34 H PT with INR INR PTT (Actin FS) D-Dimer Sodium 141 Potassium 4.0 Chloride 106 Carbon Dioxide 29 Anion Gap 6 L BUN 19.3 H Creatinine 1.0 Est GFR (CKD-EPI)AfAm 67.04 Est GFR (CKD-EPI)NonAf 57.84 POC Glucometer Random Glucose 100 Lactic Acid 1.2 Calcium 8.6 Phosphorus Magnesium Total Bilirubin 0.4 AST 55 H ALT 45 Alkaline Phosphatase 113 LD Total Troponin I < 0.02 C-Reactive Protein 3.5 H Total Protein 6.2 L Albumin 3.2 L TSH 0.80 Urine Color Urine Appearance Urine pH Ur Specific [place] Urine Protein Urine Glucose (UA) Urine Ketones Urine Blood Urine Nitrite Urine Bilirubin Urine Urobilinogen Ur Leukocyte Esterase Urine WBC (Auto) Urine RBC (Auto) Urine Casts (Auto) U Epithel Cells (Auto) Urine Bacteria (Auto) COVID-19 (RICKI) 04/03/20 04/03/20 04/03/20 11:25 13:30 17:30 WBC RBC Hgb Hct MCV MCH MCHC RDW Plt Count MPV Absolute Neuts (auto) Neutrophils % Lymphocytes % Monocytes % Eosinophils % Basophils % Nucleated RBC % ESR PT with INR 12.90 INR 1.09 PTT (Actin FS) 31.6 D-Dimer Sodium Potassium Chloride Carbon Dioxide Anion Gap BUN Creatinine Est GFR (CKD-EPI)AfAm Est GFR (CKD-EPI)NonAf POC Glucometer Random Glucose Lactic Acid 0.6 Calcium Phosphorus Magnesium Total Bilirubin AST ALT Alkaline Phosphatase LD Total Troponin I C-Reactive Protein Total Protein Albumin TSH Urine Color Dk yellow Urine Appearance Clear Urine pH 5.0 Ur Specific [place] 1.028 Urine Protein 1+ H Urine Glucose (UA) Negative Urine Ketones 1+ H Urine Blood Negative Urine Nitrite Negative Urine Bilirubin Negative Urine Urobilinogen 1.0 Ur Leukocyte Esterase Negative Urine WBC (Auto) 7 Urine RBC (Auto) 20 Urine Casts (Auto) 3 U Epithel Cells (Auto) 8 Urine Bacteria (Auto) 2 COVID-19 (RICKI) 04/03/20 04/03/20 04/04/20 18:10 22:50 00:16 WBC RBC Hgb Hct MCV MCH MCHC RDW Plt Count MPV Absolute Neuts (auto) Neutrophils % Lymphocytes % Monocytes % Eosinophils % Basophils % Nucleated RBC % ESR PT with INR INR PTT (Actin FS) D-Dimer Sodium Potassium Chloride Carbon Dioxide Anion Gap BUN Creatinine Est GFR (CKD-EPI)AfAm Est GFR (CKD-EPI)NonAf POC Glucometer 97 Random Glucose Lactic Acid Calcium Phosphorus Magnesium Total Bilirubin AST ALT Alkaline Phosphatase LD Total Troponin I C-Reactive Protein Total Protein Albumin TSH Urine Color Yellow Urine Appearance Clear Urine pH 5.0 Ur Specific [place] 1.026 Urine Protein Trace Urine Glucose (UA) Negative Urine Ketones Negative Urine Blood Negative Urine Nitrite Negative Urine Bilirubin Negative Urine Urobilinogen 1.0 Ur Leukocyte Esterase Negative Urine WBC (Auto) Urine RBC (Auto) Urine Casts (Auto) U Epithel Cells (Auto) Urine Bacteria (Auto) COVID-19 (RICKI) Not detected 04/04/20 04/04/20 04/04/20 07:10 07:10 07:10 WBC 5.7 RBC 3.79 Hgb 12.1 Hct 37.2 MCV 97.9 H MCH 31.9 MCHC 32.6 RDW 15.4 Plt Count 184 D MPV 8.5 Absolute Neuts (auto) 4.1 Neutrophils % 71.2 D Lymphocytes % 19.8 D Monocytes % 6.8 Eosinophils % 1.7 D Basophils % 0.5 Nucleated RBC % 0 ESR PT with INR 11.70 INR 0.99 PTT (Actin FS) D-Dimer Sodium 142 Potassium 4.2 Chloride 108 H Carbon Dioxide 29 Anion Gap 5 L BUN 12.3 Creatinine 0.7 Est GFR (CKD-EPI)AfAm 103.18 Est GFR (CKD-EPI)NonAf 89.03 POC Glucometer Random Glucose 93 Lactic Acid Calcium 8.7 Phosphorus 2.4 L Magnesium 2.2 Total Bilirubin 0.6 AST 39 H ALT 41 Alkaline Phosphatase 114 LD Total Troponin I C-Reactive Protein Total Protein 6.7 Albumin 3.4 TSH 2.03 Urine Color Urine Appearance Urine pH Ur Specific [place] Urine Protein Urine Glucose (UA) Urine Ketones Urine Blood Urine Nitrite Urine Bilirubin Urine Urobilinogen Ur Leukocyte Esterase Urine WBC (Auto) Urine RBC (Auto) Urine Casts (Auto) U Epithel Cells (Auto) Urine Bacteria (Auto) COVID-19 (RICKI) 04/04/20 04/04/20 04/04/20 07:10 07:10 12:42 WBC RBC Hgb Hct MCV MCH MCHC RDW Plt Count MPV Absolute Neuts (auto) Neutrophils % Lymphocytes % Monocytes % Eosinophils % Basophils % Nucleated RBC % ESR 28 PT with INR INR PTT (Actin FS) D-Dimer 1260 H Sodium Potassium Chloride Carbon Dioxide Anion Gap BUN Creatinine Est GFR (CKD-EPI)AfAm Est GFR (CKD-EPI)NonAf POC Glucometer Random Glucose Lactic Acid Calcium Phosphorus Magnesium Total Bilirubin AST ALT Alkaline Phosphatase LD Total Troponin I C-Reactive Protein 4.3 H Total Protein Albumin TSH Urine Color Urine Appearance Urine pH Ur Specific [place] Urine Protein Urine Glucose (UA) Urine Ketones Urine Blood Urine Nitrite Urine Bilirubin Urine Urobilinogen Ur Leukocyte Esterase Urine WBC (Auto) Urine RBC (Auto) Urine Casts (Auto) U Epithel Cells (Auto) Urine Bacteria (Auto) COVID-19 (RICKI) 04/04/20 12:42 WBC RBC Hgb Hct MCV MCH MCHC RDW Plt Count MPV Absolute Neuts (auto) Neutrophils % Lymphocytes % Monocytes % Eosinophils % Basophils % Nucleated RBC % ESR PT with INR INR PTT (Actin FS) D-Dimer Sodium Potassium Chloride Carbon Dioxide Anion Gap BUN Creatinine Est GFR (CKD-EPI)AfAm Est GFR (CKD-EPI)NonAf POC Glucometer Random Glucose Lactic Acid Calcium Phosphorus Magnesium Total Bilirubin AST ALT Alkaline Phosphatase LD Total 148 Troponin I C-Reactive Protein Total Protein Albumin TSH Urine Color Urine Appearance Urine pH Ur Specific [place] Urine Protein Urine Glucose (UA) Urine Ketones Urine Blood Urine Nitrite Urine Bilirubin Urine Urobilinogen Ur Leukocyte Esterase Urine WBC (Auto) Urine RBC (Auto) Urine Casts (Auto) U Epithel Cells (Auto) Urine Bacteria (Auto) COVID-19 (RICKI) Imaging - Results Chest X-ray: Report Reviewed Cat Scan: Report Reviewed Problem List - Problems (1) Acute encephalopathy Code(s): G93.40 - ENCEPHALOPATHY, UNSPECIFIED (2) Fever Code(s): R50.9 - FEVER, UNSPECIFIED (3) HLD (hyperlipidemia) Code(s): E78.5 - HYPERLIPIDEMIA, UNSPECIFIED (4) HTN (hypertension) Code(s): I10 - ESSENTIAL (PRIMARY) HYPERTENSION (5) Rheumatoid arthritis Code(s): M06.9 - RHEUMATOID ARTHRITIS, UNSPECIFIED (6) SLE (systemic lupus erythematosus) Code(s): M32.9 - SYSTEMIC LUPUS ERYTHEMATOSUS, UNSPECIFIED (7) Scleroderma Code(s): M34.9 - SYSTEMIC SCLEROSIS, UNSPECIFIED Assessment/Plan 70 y.o. female with PMH of SLE, scleroderma, RA, HTN, HLD, Ovarian Cyst s/p SLAVA/BSO on 02/2020, hx of pulmonary cavitary lesion (denies dx of TB and states it was due to Methotrexate ?, s/p VATS and nodule resection), HTN, HLD presents with c/o intermittent LE weakness/difficulty ambulating, speech difficulty, confusion/incoherence, and feeling hot/clammy since receiving inactivated flu vaccine at [facility] 3 days ago. Fever Intermittent LE weakness AMS SLE Sclerderma RA HTN HLD Cavitary lesion/lung nodule s/p resection Ovarian cyst s/p SLAVA/BSO -- Suspect atypical reaction to influenza vaccine -- pt afebrile since yesterday without leukocytosis, back to baseline status/fully functional, no further LE weakness, no meningeal symptoms -- MRI without acute findings, routine cultures negative, vitals stable -- no signs suggestive of meningitis -- COVID-19 neg. (COVID 19 negative in February 2020 as well) -- CRP slightly elevated, ESR normal, Lyme serology pending -- monitor off antibiotics , monitor temps/vitals Will follow up Thank you
[2020-04-04] MEDS: ATORVASTATIN CA 20 MG TABLET (FP) PO SCH (22:02)
[2020-04-04] MEDS: LATANOPROST 0.005% OPHTH SOLN 2.5ML BOTTLE OU SCH (22:02)
[2020-04-04] MEDS: TEMAZEPAM 15 MG CAPSULE PO SCH (22:02)
[2020-04-05] MEDS: HEPARIN NA (PORCINE) 5,000 UNITS/ML 1ML VIAL SQ SCH ×2 (06:38→14:08)
[2020-04-05] MEDS: DORZOLAMIDE 2% HCL OPHTHALMIC SOLUTION 10 ML BOTTLE OU SCH ×2 (06:38→14:08)
[2020-04-05] MEDS: GABAPENTIN 250 MG/5 ML ORAL SOLUTION, 470 ML BOTTLE PO SCH ×2 (06:38→12:43)
[2020-04-05] MEDS: LEVOTHYROXINE NA 88 MCG TABLET (FP) PO SCH (06:39)
[2020-04-05 07:32] LABS: BASO % 0.7 % (0-2.0); EOS % 2.4 % (0-4.5); HEMATOCRIT 35.7 % (32.4-45.2); HEMOGLOBIN 11.8 GM/dL (10.7-15.3); LYMPH % 32.1 % (8-40); MCH 32.2 pg (25.7-33.7); MCHC 32.9 g/dl (32.0-36.0); MEAN CELL VOLUME 97.8 fl (80-96); MEAN PLT VOLUME 8.2 fl (7.5-11.1); MONO % 9.9 % (3.8-10.2); NEUT % 54.9 % (42.8-82.8); PLATELET COUNT 180 K/MM3 (134-434); RBC 3.65 M/mm3 (3.60-5.2); RDW 15.1 % (11.6-15.6); WHITE BLOOD COUNT 4.9 K/mm3 (4.0-10.0)
[2020-04-05 07:44] LABS: ALBUMIN 3.1 g/dl (3.4-5.0); BILIRUBIN,TOTAL 0.4 mg/dL (0.2-1); BLOOD UREA NITROGEN 10.2 mg/dL (7-18); CALCIUM 8.7 mg/dL (8.5-10.1); CREATININE 0.6 mg/dL (0.55-1.3); POTASSIUM 3.9 mmol/L (3.5-5.1); TOT PROT 6.2 g/dl (6.4-8.2)
[2020-04-05] MEDS: HYDROXYCHLOROQUINE 200 MG/8 ML ORAL SUSPENSION PO SCH (09:10)
[2020-04-05] MEDS: FOLIC ACID 1 MG TABLET (FP) PO SCH (09:10)
[2020-04-05] MEDS: TIMOLOL 0.5% OPHTHALMIC SOL 5 ML BOTTLE OU SCH (09:10)
[2020-04-05] MEDS: VITAMIN B COMPLEX W/C COMBO TABLET (FP) PO SCH (09:10)
[2020-04-05] MEDS: CHOLECALCIFEROL (VIT D3) 1,000 UNIT (25 MCG) TABLET PO SCH (09:10)
[2020-04-05] MEDS: MULTIVITAMINS (DAILY MVI) TABLET (FP) PO SCH (09:10)
[2020-04-05] MEDS: FAMOTIDINE 20 MG TABLET PO SCH (09:11)
--- NOTE | 2020-04-05 14:52 | CONSULT ---
Consult Consult Specialty:: Rheumatology - History of Present Illness History of Present Illness: 70 year old F with PMHx of HTN, HLD, rheumatoid arthritis, s/p lung cavitation 2o to JOSE and s/p thoracotomy, admitted with episodes of muscle weakness and confusion. HPI. Four days ago the patient received the flu vaccine and later on she developed an episode of weakness in lower limbs and apparently confusion that resolved after 30 minutes. Two days later ago she developed a similar episode that also resolved spontaneously. CTD. When the patient was 41 years old she developed iritis and fatigue and apparently was found to have a positive GABRIEL and was not prescribed medications. In 2007 she developed Raynauds phenomenon and in 2009 she developed inflammatory arthritis. She was diagnosed with rheumatoid arthritis and treated initially with Methotrexate, she had only a partial response and then she did not tolerate treatments with Humira and Symponi. She was then started on Hydroxychloroquine in addition to Methotrexate with good response. In 2016 she developed mild dysphagia and since then she takes only a soft diet. On admission T. max was 101.5 and since then she has not have fever. At the present time the patient denies joint pain or morning stiffness and she is other yoon asymptomatic. I spoke with the patients conditioning coach (Dr. Sara Reilly), who indicated th at the patient has rheumatoid arthritis (and no overlap with lupus or scleroderma). Laboratory work-up from 12/20/16 revealed GABRIEL >1:1280 with centromere pattern. Rheumatoid factor and CCP were negative. Laboratory work-up in this admission revealed a normal CBC, SMA-7 and liver function tests. .Urinalysis on admission had protein 1+, and no blood or LE. ESR 28, CRP 4.3 and Covid-19 negative. - History Source History Provided By: Patient, Medical Record - Past Medical History Cardio/Vascular: Yes: HTN, Hyperlipdemia Pulmonary: Yes: Other (pulmonary nodule) Rheumatology: Yes: Lupus, Rheumatoid Arthritis, Other (Scleroderma) - Past Surgical History Past Surgical History: Yes: Hysterectomy, Oopherectomy - Smoking History Smoking history: Never smoked Have you smoked in the past 12 months: No - Social History Usual Living Arrangement: With Spouse Occupation: Retired nurse History of Recent Travel: No Home Medications - Allergies Allergies/Adverse Reactions: Allergies Allergy/AdvReac Type Severity Reaction Status Date / Time adalimumab [From Humira] Allergy Severe Swelling Verified 04/03/20 10:56 of lips, gums and tongue codeine [Codeine] Allergy Severe SOB Verified 04/03/20 10:56 sulfamethizole Allergy Severe generalized Verified 04/03/20 10:56 rash eeg yolk Allergy Severe Lip Uncoded 04/03/20 10:56 swelling - Home Medications Home Medications: Ambulatory Orders Aspirin [Aspirin Ec] 325 mg PO DAILY 08/23/12 Folic Acid 1 mg PO DAILY tablet 08/23/12 Hydroxychloroquine Sulfate [Plaquenil] 200 mg PO BID tablet 08/23/12 Dorzolamide HCl/Timolol Maleat [Cosopt Eye Drops] 1 drop OP EACH EYE 06/29/15 Latanoprost 0.005% Eye Drops [Xalatan 0.005% Eye Drops -] 1 drop OU DAILY 04/03/20 Temazepam [Restoril] 30 mg PO 04/03/20 Tramadol HCl [Ultram] 50 mg PO DAILY PRN MDD 50 mg 04/03/20 Methotrexate [Mexate -] 12.5 mg PO Q7D 04/04/20 Family Medical History Other Family History: Aunt has SLE Review of Systems - Review of Systems Constitutional: reports: No Symptoms Eyes: reports: No Symptoms HENT: reports: No Symptoms Cardiovascular: reports: No Symptoms Respiratory: reports: No Symptoms Gastrointestinal: reports: No Symptoms Musculoskeletal: reports: No Symptoms Neurological: reports: Other (See HPI) Physical Exam Vital Signs: Vital Signs Temperature 98.3 F 04/05/20 09:14 Pulse Rate 73 04/05/20 09:14 Respiratory Rate 16 04/05/20 09:14 Blood Pressure 114/72 04/05/20 09:14 O2 Sat by Pulse Oximetry (%) 94 L 04/05/20 09:14 Constitutional: Yes: No Distress Eyes: Yes: WNL HENT: Yes: WNL Cardiovascular: Yes: WNL Respiratory: Yes: WNL Gastrointestinal: Yes: WNL Musculoskeletal: Yes: Other (No active joints.) Integumentary: Yes: Other (Normal. No telangiectasia, sclerodactily or proximal scleroderma.) Labs: CBC, BMP 04/05/20 06:14 04/05/20 06:14 Problem List - Problems (1) Rheumatoid arthritis Assessment/Plan: Rheumatoid arthritis, disease not active. The patient does not have overlap with lupus or scleroderma. It is unlikely that the episodes of weakness and confusion are related to rheumatoid arthritis. Code(s): M06.9 - RHEUMATOID ARTHRITIS, UNSPECIFIED
[2020-04-05 15:04] VITALS: BP 125/74; PULSE 66; TEMP 98.5
--- NOTE | 2020-04-05 15:20 | DS ---
Physical Exam: SUBJECTIVE: No acute events. Wondering when she can go home. Discussed why CTA and duplex need to be performed (elevated D-dimer) without explanation. OBJECTIVE: Vital Signs Period Temp Pulse Resp BP Sys/Escobar Pulse Ox Last 24 Hr 98.0 F-98.5 F 65-76 16-20 114-134/60-82 94-98 PHYSICAL EXAM GENERAL: The patient is awake, alert, and fully oriented, in no acute distress. HEENT: Nc/At, MOE, EOMI, MMM NECK: No JVD LUNGS: CTA bilaterally, no wheezes, no crackles, no accessory muscle use. HEART: RRR, S1, S2 without murmur, rub or gallop. ABDOMEN: Soft, NT/ND, normoactive bowel sounds, no guarding EXTREMITIES: 2+ pulses, warm, well-perfused, no edema. NEUROLOGICAL: Cranial nerves II through XII grossly intact. Strength 5/5. Sensation intact. Normal speech, gait not observed. PSYCH: Normal mood, normal affect. SKIN: Warm, dry, no rashes or lesions noted. LABS Laboratory Results - last 24 hr 04/03/20 04/04/20 04/05/20 17:30 17:28 06:14 WBC 4.9 RBC 3.65 Hgb 11.8 Hct 35.7 MCV 97.8 H MCH 32.2 MCHC 32.9 RDW 15.1 Plt Count 180 MPV 8.2 Absolute Neuts (auto) 2.7 Neutrophils % 54.9 D Lymphocytes % 32.1 D Monocytes % 9.9 Eosinophils % 2.4 Basophils % 0.7 Nucleated RBC % 0 Sodium Potassium Chloride Carbon Dioxide Anion Gap BUN Creatinine Est GFR (CKD-EPI)AfAm Est GFR (CKD-EPI)NonAf POC Glucometer 80 Random Glucose Calcium Total Bilirubin AST ALT Alkaline Phosphatase Total Protein Albumin Lyme Screen IgG & IgM <0.91 04/05/20 06:14 WBC RBC Hgb Hct MCV MCH MCHC RDW Plt Count MPV Absolute Neuts (auto) Neutrophils % Lymphocytes % Monocytes % Eosinophils % Basophils % Nucleated RBC % Sodium 143 Potassium 3.9 Chloride 109 H Carbon Dioxide 30 Anion Gap 4 L BUN 10.2 Creatinine 0.6 Est GFR (CKD-EPI)AfAm 108.55 Est GFR (CKD-EPI)NonAf 93.66 POC Glucometer Random Glucose 87 Calcium 8.7 Total Bilirubin 0.4 AST 30 ALT 34 Alkaline Phosphatase 101 Total Protein 6.2 L Albumin 3.1 L Lyme Screen IgG & IgM HOSPITAL COURSE: Date of Admission:04/03/20 Date of Discharge: 04/05/20 Pt admitted on 04/03/2020 due to acute confusion/delirium. Patient had CT and brain MRI performed which were normal. Her encephalopathy was self-limited and she recovered without any notable residual deficits. D-dimer was elevated to 1300 and so duplex b/l LE and CTA chest were performed which noted chronic changes and no acute PE or DVT. It is believed she may have had interaction with her influenza vaccination or possibly with medication interaction not observed while inpatient. She is to see her outpatient physicians for f/u. Pt being discharged in stable condition today. Minutes to complete discharge: 33 Discharge Summary Problems reviewed: Yes Reason For Visit: WEAKNESS PNEUMONIA Current Active Problems Acute encephalopathy (Acute) Fever (Acute) Glaucoma (Acute) HLD (hyperlipidemia) (Acute) HTN (hypertension) (Acute) Prophylactic measure (Acute) Pulmonary tuberculosis with cavitation (Acute) Rheumatoid arthritis (Acute) S/P thoracotomy (Acute) SLE (systemic lupus erythematosus) (Acute) Scleroderma (Acute) Suspected COVID-19 virus infection (Acute) Condition: Stable - Instructions Diet, Activity, Other Instructions: You were seen here for your acute delirium/confusion. You were seen by a neurologist and ID physician and it was likely due to a vaccination reaction vs. medication and vaccination reaction. While you were here, your D-dimer was elevated and a CTA Chest and venous duplex was performed to rule out any thromboembolic source causing your event. Both were normal. Your brain MRI was normal. MEDICATIONS: Please continue your home medications as below: Methotrexate 12.5mg weekly Toprol XL 25mg daily Synthroid 88mcg daily ASA 325mg daily Plaquenil 200mg twice daily Neurontn as your regularly home schedule Follow-up: Please follow-up with Dr. Craig within 1 week to have him follow-up. Referrals: Valentin Craig MD [Primary Care Provider] - Disposition: HOME - Home Medications Comprehensive Discharge Medication List: Ambulatory Orders Aspirin [Aspirin EC] 325 mg PO DAILY 08/23/12 Folic Acid 1 mg PO DAILY tablet 08/23/12 Hydroxychloroquine Sulfate [Plaquenil] 200 mg PO BID tablet 08/23/12 Dorzolamide HCl/Timolol Maleat [Cosopt Eye Drops] 1 drop OP EACH EYE 06/29/15 Latanoprost 0.005% Eye Drops [Xalatan 0.005% Eye Drops -] 1 drop OU DAILY 04/03/20 Temazepam [Restoril] 30 mg PO 04/03/20 Tramadol HCl [Ultram] 50 mg PO DAILY PRN MDD 50 mg 04/03/20 Methotrexate [Mexate -] 12.5 mg PO Q7D 04/04/20 This patient is new to me today: Yes Date on this admission: 04/05/20 Emergency Visit: Yes ED Registration Date: 04/03/20 Care time: The patient presented to the Emergency Department on the above date and was hospitalized for further evaluation of their emergent condition. Critical Care patient: No - Discharge Referral Referred to [facility] No
[2020-04-07] MEDS ORDERED: METHOTREXATE 2.5 MG TABLET PO SCH (10:00)
== END 2020-04-05 17:21 | disposition home or self-care (01) | DRG 93 ==
LOC: SUPCPDRO 10:55 → JER 10:55 → JERBED 16:09 → J4S 20:06
PROVIDERS: ADMIT Student in an Organized Health Care Education/Training Program; ATTEND Internal Medicine
DX: G92 Toxic encephalopathy (principal); T50.B95A Adverse effect of other viral vaccines, initial encounter; I10 Essential (primary) hypertension; E78.5 Hyperlipidemia, unspecified; M34.9 Systemic sclerosis, unspecified; M06.9 Rheumatoid arthritis, unspecified; E78.00 Pure hypercholesterolemia, unspecified; M32.9 Systemic lupus erythematosus, unspecified; E03.9 Hypothyroidism, unspecified; H40.9 Unspecified glaucoma; R50.9 Fever, unspecified; R53.1 Weakness
CPT/HCPCS: 36415; 70450-TC; 70551-TC; 71045-TC-FY; 71275-TC; 80053; 81003; 82962; 83605; 83615; 83735; 84100; 84443; 84484; 85025; 85379; 85610; 85651; 85730; 86140; 86618; 87040; 87086; 87804; 93005; 93010; 93970-TC; 99282-25; 99285-25; J0131; J1644; Q9967; U0003

== ENCOUNTER 2022-05-30 13:07 | Emergency (ER) | payer OTHER, BC ==
[2022-05-30] MEDS ORDERED: ACETAMINOPHEN 1000 MG/100 ML BAG IVPB ONE (15:01)
[2022-05-30] MEDS ORDERED: SODIUM CHLORIDE 0.9% 500 ML INFUS.BAG IV ONE ×2 (15:02→16:59)
[2022-05-30] MEDS ORDERED: ACETAMINOPHEN INJECTION 100 ML IVPB ONE (15:03)
[2022-05-30 15:55] LABS: VENOUS BASE EXCESS 2.3 mmol/L (-2-2); VENOUS O2 SATURATION 47.6 % (70-80); VENOUS PCO2 56.4 mmHg (38-52); VENOUS PH 7.343 (7.310-7.410)
[2022-05-30 16:03] LABS: BASO % 0.6 % (0-2.0); EOS % 0.5 % (0-4.5); HEMATOCRIT 37.5 % (32.4-45.2); HEMOGLOBIN 11.8 GM/dL (10.7-15.3); LYMPH % 6.2 % (8-40); MCH 30.5 pg (25.7-33.7); MCHC 31.3 g/dl (32.0-36.0); MEAN CELL VOLUME 97.5 fl (80-96); MEAN PLT VOLUME 9.3 fl (7.5-11.1); MONO % 7.6 % (3.8-10.2); NEUT % 85.1 % (42.8-82.8); PLATELET COUNT 198 10^3/uL (134-434); RBC 3.85 M/mm3 (3.60-5.2); RDW 15.9 % (11.6-15.6); WHITE BLOOD COUNT 7.1 K/mm3 (4.0-10.0)
[2022-05-30 16:19] LABS: CALCIUM 8.4 mg/dL (8.5-10.1)
[2022-05-30 16:20] LABS: ALBUMIN 3.3 g/dl (3.4-5.0); BLOOD UREA NITROGEN 11.4 mg/dL (7-18)
[2022-05-30 16:23] LABS: CREATININE 0.8 mg/dL (0.55-1.3)
[2022-05-30 16:25] LABS: BILIRUBIN,TOTAL 0.4 mg/dL (0.2-1); TOT PROT 6.1 g/dl (6.4-8.2)
[2022-05-30 16:34] LABS: INR 1.01 (0.83-1.09); PROTHROMBIN TIME (PATIENT) 11.6 SEC (9.7-13.0)
[2022-05-30 16:36] LABS: ACTIVATED PTT 30.6 SECONDS (25.2-36.5)
[2022-05-30 16:37] LABS: URINE APPEARANCE CLEAR; URINE BILIRUBIN NEGATIVE (NEGATIVE); URINE COLOR YELLOW; URINE GLUCOSE (UA) NEGATIVE (NEGATIVE); URINE KETONE 1+ (NEGATIVE); URINE LEUK ESTERASE NEGATIVE (NEGATIVE); URINE NITRITE NEGATIVE (NEGATIVE); URINE PROTEIN TRACE (NEGATIVE); URINE UROBILINOGEN 0.2 mg/dL (0.2-1.0)
[2022-05-30 17:07] VITALS: BP 109/71
[2022-05-30 17:55] VITALS: PULSE 86; RESP 18
[2022-05-30 18:38] VITALS: TEMP 98.6
== END 2022-05-30 18:30 | disposition home or self-care (01) ==
LOC: JER 13:07
PROC: 3E033GC Introduction of Other Therapeutic Substance into Peripheral Vein, Percutaneous Approach (ICD-10-PCS; principal; 2022-05-30)
DX: U07.1 COVID-19 (principal)
CPT/HCPCS: 0241U-QW; 36415; 71045-TC-FY; 80053; 81003; 82803; 83605; 84484; 85025; 85610; 85730; 86850; 86900; 86901; 87040; 87086; 93005; 93010; 99285-25